=== PATIENT | male | born 1950 | race Caucasian/White ===

== ENCOUNTER 2016-12-19 08:33 | Emergency (ER) | payer OTHER ==
[~2016-12-19] VITALS: Ht 182.9 cm; Wt 61.2 kg
[2016-12-19] MEDS ORDERED: predniSONE 20 MG TABLET ONE (08:51)
[2016-12-19] MEDS ORDERED: IPRATROPIUM NEB FS 0.5 MG/2.5 ML AMPUL.NEB NEB ONE (09:00)
[2016-12-19] MEDS ORDERED: predniSONE 20 MG TABLET PO ONE (09:00)
[2016-12-19] MEDS ORDERED: ALBUTEROL FS 2.5 MG/3 ML VIAL.NEB NEB ONE (09:00)
[2016-12-19] MEDS ORDERED: methylPREDNISolone SOD SUCC 125 MG/2ML VIAL IV ONE (09:00)
[2016-12-19] MEDS ORDERED: methylPREDNISolone SOD SUCC 125 MG/2ML VIAL ONE (09:03)
[2016-12-19 09:09] LABS: BASOPHILS % (AUTO) 0.5 % (0.0-2.0); DIFF TOTAL % 100 %; EOSINOPHILS # (AUTO) 0.6 /CMM (0.0-0.7); EOSINOPHILS % (AUTO) 6.3 % (0.0-6.0); HEMATOCRIT 40 % (39-51); LYMPHOCYTES # (AUTO) 1.6 /CMM (0.8-4.8); LYMPHOCYTES % (AUTO) 16.5 % (20.0-44.0); MEAN CORPUSCULAR HEMOGLOBIN 31 PG (26.0-33.0); MEAN CORPUSCULAR HGB CONC 33 g/dl (31.0-36.0); MEAN CORPUSCULAR VOLUME 95 fL (80-96); MONOCYTES # (AUTO) 1.2 /CMM (0.1-1.30); MONOCYTES % (AUTO) 11.8 % (2.0-12.0); NEUTROPHILS # (AUTO) 6.4 /CMM (1.8-8.9); NEUTROPHILS % (AUTO) 64.9 % (43.0-81.0); PLATELET COUNT (AUTO) 346 /CMM (150-450); RED BLOOD CELL COUNT(AUTO) 4.19 MIL/uL (4.5-6.0); WHITE BLOOD COUNT (AUTO) 9.8 K/uL (4.3-11.0)
[2016-12-19] MEDS ORDERED: ALBUTEROL FS 2.5 MG/3 ML VIAL.NEB ONE (09:18)
[2016-12-19] MEDS ORDERED: IPRATROPIUM NEB FS 0.5 MG/2.5 ML AMPUL.NEB ONE (09:18)
[2016-12-19 09:23] LABS: ANION GAP 19 (5-14); CALCIUM, SERUM 8.7 mg/dL (8.5-10.1); CARBON DIOXIDE 23 mmol/L (21-32); CHLORIDE 98 mmol/L (98-107); CREATININE 1.1 mg/dL (0.6-1.3); GFR 67 mL/min (>60); GLUCOSE 97 mg/dL (74-106); POTASSIUM 4.7 mmol/L (3.5-5.1); SODIUM SERUM 135 mmol/L (136-145); UREA NITROGEN, BLOOD 17 mg/dL (7-18)
[2016-12-19 09:26] LABS: TROPONIN I < 0.017 ng/mL (0.00-0.056)
[2016-12-19] MEDS ORDERED: RALT400T PO (10:18)
[2016-12-19] MEDS ORDERED: FLUT1DIS3 IH (10:18)
[2016-12-19] MEDS ORDERED: ABAC1TAB3 PO (10:18)
[2016-12-19] MEDS ORDERED: HYDR10TA PO (10:18)
[2016-12-19] MEDS ORDERED: TRAZ-144 PO (10:18)
[2016-12-19] MEDS ORDERED: LORA1TAB PO (10:18)
[2016-12-19] MEDS ORDERED: OMEP40CA37 PO (10:18)
[2016-12-19] MEDS ORDERED: ALBU2.5V12 NEB (10:18)
[2016-12-19] MEDS ORDERED: ROSU10TA PO (10:18)
[2016-12-19] MEDS ORDERED: ALBU8.5H2 IH (10:18)
[2016-12-19 10:34] VITALS: BP 129/70
== END 2016-12-19 10:35 | disposition home or self-care (01) ==
LOC: ER 08:35
DX: J40 Bronchitis, not specified as acute or chronic (principal); J44.9 Chronic obstructive pulmonary disease, unspecified
CPT/HCPCS: 36415; 71010; 80048; 83880; 84484; 85025; 87804; 93005; 94640; 96374; 99285; A4606; J2930; 87400

== ENCOUNTER 2018-03-24 18:31 | Emergency (ER) | payer OTHER, MEDICAID ==
[~2018-03-24] VITALS: Ht 165.1 cm; Wt 52.8 kg
[~2018-03-24 18:31] MED LIST: ABAC1TAB3 PO; ALBU2.5V13 NEB; ALBU8.5H8 IH; FLUT1DIS3 IH; HYDR10TA PO; LORA1TAB PO; OMEP40CA37 PO; RALT400T PO; ROSU10TA PO; TRAZ-182 PO
--- NOTE | 2018-03-24 18:34 | NUR ---
AAOx3, BIBRA 87 from home c/o SOB, tachypneic, breathing treatment in the field. Placed on the monitor. Will continuously monitor the patient. Awaiting MD for eval.
--- NOTE | 2018-03-24 18:37 | NUR ---
Report given to AYLA Correa for RAIN.
--- NOTE | 2018-03-24 18:55 | NUR ---
BLOOD PICKED UP BY VIDEO GAME ANIMATOR
[2018-03-24] MEDS ORDERED: IV NS 0.9% 1,000 ML BAG IV ONE (19:00)
[2018-03-24] MEDS ORDERED: IPRATROPIUM NEB FS 0.5 MG/2.5 ML AMPUL.NEB NEB ONE (19:00)
[2018-03-24] MEDS ORDERED: ALBUTEROL FS 2.5 MG/3 ML VIAL.NEB NEB ONE (19:00)
[2018-03-24] MEDS ORDERED: methylPREDNISolone SOD SUCC 125 MG/2ML VIAL IV ONE (19:00)
--- NOTE | 2018-03-24 19:00 | NUR ---
INSET CUTTER AT BEDSIDE
[2018-03-24 19:05] LABS: BASOPHILS % (AUTO) 0.2 % (0.0-2.0); EOSINOPHILS % (AUTO) 1.2 % (0.0-6.0); HEMATOCRIT 36 % (39-51); HEMOGLOBIN 12.4 g/dL (13.5-17.5); LYMPHOCYTES # (AUTO) 1.4 /CMM (0.8-4.8); MEAN CORPUSCULAR HGB CONC 34 g/dl (31.0-36.0); MEAN CORPUSCULAR VOLUME 89 fL (80-96); MONOCYTES # (AUTO) 0.3 /CMM (0.1-1.30); MONOCYTES % (AUTO) 2.5 % (2.0-12.0); NEUTROPHILS # (AUTO) 8.7 /CMM (1.8-8.9); NEUTROPHILS % (AUTO) 83.1 % (43.0-81.0); PLATELET COUNT (AUTO) 351 /CMM (150-450); RDW COEFFICIENT OF VARIATION 16.9 (11.5-15.0); RED BLOOD CELL COUNT(AUTO) 4.09 MIL/uL (4.5-6.0); WHITE BLOOD COUNT (AUTO) 10.5 K/uL (4.3-11.0)
[2018-03-24] MEDS ORDERED: methylPREDNISolone SOD SUCC 125 MG/2ML VIAL ONE (19:07)
[2018-03-24 19:10] LABS: CARBON DIOXIDE 28 mmol/L (21-32); CHLORIDE 106 mmol/L (98-107); CREATININE 1.1 mg/dL (0.6-1.3); GLUCOSE 95 mg/dL (74-106); POTASSIUM 3.9 mmol/L (3.5-5.1); SODIUM SERUM 142 mmol/L (136-145); UREA NITROGEN, BLOOD 13 mg/dL (7-18)
[2018-03-24 19:16] LABS: ALANINE AMINOTRANSFERASE 6 U/L (12-78); ALBUMIN 3.4 g/dL (3.4-5.0); ALKALINE PHOSPHATASE 53 U/L (46-116); ASPARTATE AMINOTRANSFERASE 17 U/L (15-37); BILIRUBIN,DIRECT 0.1 mg/dL (0.0-0.2); BILIRUBIN,TOTAL 0.5 mg/dL (0.2-1.0); TOTAL PROTEIN, SERUM 7.5 g/dL (6.4-8.2)
[2018-03-24 19:18] LABS: TROPONIN I < 0.017 ng/mL (0.00-0.056)
[2018-03-24] MEDS ORDERED: ALBUTEROL FS 2.5 MG/3 ML VIAL.NEB ONE (19:24)
[2018-03-24 20:37] VITALS: BP 160/80
== END 2018-03-24 20:38 | disposition home or self-care (01) ==
LOC: ER 18:32
DX: J44.1 Chronic obstructive pulmonary disease with (acute) exacerbation (principal); F41.9 Anxiety disorder, unspecified; G89.29 Other chronic pain; I10 Essential (primary) hypertension; Z87.891 Personal history of nicotine dependence; Z53.20 Procedure and treatment not carried out because of patient's decision for unspecified reasons
CPT/HCPCS: 36415; 71045-TC; 80048-TC; 80076-TC; 84484-TC; 85025-TC; A4606; J2930; J7030; Z7610

== ENCOUNTER 2018-05-27 08:13 | Inpatient (IN) | payer MEDICARE, MEDICAID ==
[~2018-05-27] VITALS: Ht 165.1 cm; Wt 49.9 kg
--- NOTE | 2018-05-27 08:16 | NUR ---
PA FRO HOME DT SOB X 2 WEEKS, PATIENT IS AWAKE ALERT. APPEARS IN NO DISTRESS. PATIENT ON O2 VA NC @4LPM. SATING 94%,. SKIN IS WARM TO TOUCH AND NON DIAPHORETIC. PATIENT IS AFEBRILE. VSS
[2018-05-27] MEDS ORDERED: IPRATROPIUM NEB FS 0.5 MG/2.5 ML AMPUL.NEB NEB ONE ×2 (08:30→10:00)
[2018-05-27] MEDS ORDERED: ALBUTEROL FS 2.5 MG/3 ML VIAL.NEB NEB ONE ×2 (08:30→10:00)
[2018-05-27] MEDS ORDERED: methylPREDNISolone SOD SUCC 125 MG/2ML VIAL IV ONE (08:30)
[2018-05-27] MEDS ORDERED: LEVOFLOXACIN 750 MG /D5W 150ML 150 ML IV ONE ×2 (08:30→08:42)
[2018-05-27] MEDS ORDERED: methylPREDNISolone SOD SUCC 125 MG/2ML VIAL ONE (08:42)
[2018-05-27] MEDS ORDERED: ALBUTEROL FS 2.5 MG/3 ML VIAL.NEB ONE ×3 (08:44→09:48)
[2018-05-27] MEDS ORDERED: IPRATROPIUM NEB FS 0.5 MG/2.5 ML AMPUL.NEB ONE ×2 (08:44→09:43)
[2018-05-27 08:46] LABS: BASOPHILS # (AUTO) 0.1 /CMM (0.0-0.2); BASOPHILS % (AUTO) 0.4 % (0.0-2.0); EOSINOPHILS % (AUTO) 0.5 % (0.0-6.0); HEMATOCRIT 38 % (39-51); HEMOGLOBIN 12.7 g/dL (13.5-17.5); LYMPHOCYTES # (AUTO) 1.6 /CMM (0.8-4.8); LYMPHOCYTES % (AUTO) 11.8 % (20.0-44.0); MEAN CORPUSCULAR HEMOGLOBIN 30 PG (26.0-33.0); MEAN CORPUSCULAR HGB CONC 33 g/dl (31.0-36.0); MEAN CORPUSCULAR VOLUME 91 fL (80-96); MONOCYTES # (AUTO) 0.4 /CMM (0.1-1.30); NEUTROPHILS # (AUTO) 11.3 /CMM (1.8-8.9); NEUTROPHILS % (AUTO) 84.3 % (43.0-81.0); PLATELET COUNT (AUTO) 478 /CMM (150-450); RDW COEFFICIENT OF VARIATION 16.6 (11.5-15.0); RED BLOOD CELL COUNT(AUTO) 4.23 MIL/uL (4.5-6.0); WHITE BLOOD COUNT (AUTO) 13.4 K/uL (4.3-11.0)
[2018-05-27 09:05] LABS: CALCIUM, SERUM 8.7 mg/dL (8.5-10.1); CARBON DIOXIDE 23 mmol/L (21-32); CHLORIDE 96 mmol/L (98-107); CREATININE 1.8 mg/dL (0.6-1.3); GLUCOSE 109 mg/dL (74-106); POTASSIUM 3.3 mmol/L (3.5-5.1); SODIUM SERUM 133 mmol/L (136-145); UREA NITROGEN, BLOOD 32 mg/dL (7-18)
[2018-05-27 09:13] LABS: TROPONIN I < 0.017 ng/mL (0.00-0.056)
[2018-05-27 09:18] LABS: ALANINE AMINOTRANSFERASE 36 U/L (12-78); ALBUMIN 2.4 g/dL (3.4-5.0); ALKALINE PHOSPHATASE 66 U/L (46-116); ASPARTATE AMINOTRANSFERASE 54 U/L (15-37); B-TYPE NATRIURETIC PEPTIDE 653 PG/ML (0-125); BILIRUBIN,DIRECT 0.3 mg/dL (0.0-0.2); BILIRUBIN,TOTAL 0.7 mg/dL (0.2-1.0); TOTAL PROTEIN, SERUM 8.2 g/dL (6.4-8.2)
--- NOTE | 2018-05-27 09:27 | NUR ---
EPIC NOTIFIED. WILL CALL BACK
--- NOTE | 2018-05-27 09:40 | NUR ---
RT CONTACTED FOR ONE MORE AN ADDITIONAL BREATHING TX PER VERBAL ORDERS MD. PT REQUESTED TO SIGN OUT AMA. PT INFORMED OF RISKS AND BENEFITS.
--- NOTE | 2018-05-27 09:50 | NUR ---
PT GIVEN BREATHING TX; AFTER TX WAS GIVEN. PT REF TP CONTINUE WITH THE TX. RN NOTIFIED.
--- NOTE | 2018-05-27 10:38 | NUR ---
LAB AT BEDSIDE. PT REFUSED LACTIC ACID BLOOD DRAW PER ORDERED BY
--- NOTE | 2018-05-27 11:15 | NUR ---
PT TRANSP WITH STABLE CONDITION. NAD
[2018-05-27 11:30] VITALS: BP 96/63
--- NOTE | 2018-05-27 11:30 | NUR ---
VISION IMPAIRED TEACHERIRON ERECTOR NOTES ADMITTED PT FROM ER WITH DX OF COPD EXACERBATION AND PNA.CLARIFIED ADMITTING ORDERS WITH DR GALLARDO AND CARRIED OUT.RESPIRATIONS NON LABORED WITH O2 AT 2L/MIN VIA N/C.HOB KEPT ELEVATED.WITH MULTIPLE DRY SCABS ON BUE,BLE,RLE SAUNDERS AND LOWER BACK DRY WOUND SCAB.PT STATED THAT HE HAD FALLS IN THE PAST.ASSISTED PT TO THE TOILET.PLACED ON BED ALARM.PT LOOKS EMACIATED.PT ENJOYED [place] SNACKS AND LUNCH SERVED TO HIM.WITH GOOD APPETITE.PT STATED THAT HE HASN'T HAD BOWEL MOVEMENT IN A MONTH BECAUSE HE HAS'NT EATEN ANY FOOD FOR A MONTH.PT USES CANE AND FWW AT HOME WHERE HE LEFT HIS FWW IN THE AMBULANCE THAT TOOK HIM.PROVIDED A NEW FWW TO THE PT.CALL LIGHT PLACED WITHIN REACH.
[2018-05-27] MEDS ORDERED: Z GUARD REMEDY 2 OZ OINT TP PRN (12:30)
[2018-05-27] MEDS ORDERED: ONDANSETRON HCL/PF 4 MG/2 ML VIAL IVP PRN (12:30)
[2018-05-27] MEDS ORDERED: HYDROCODONE/APAP 5/325MG 1 EACH TABLET PO PRN (12:30)
[2018-05-27] MEDS ORDERED: POTASSIUM CHLORIDE 20 MEQ TAB.PRT.SR PO ONE (12:30)
[2018-05-27] MEDS ORDERED: MAGNESIUM HYDROXIDE 30 ML UDC PO PRN (12:30)
[2018-05-27] MEDS ORDERED: MAG HYDROX/AL HYDROX/SIMETH 30 ML UDC PO PRN (12:30)
[2018-05-27] MEDS ORDERED: ZOLPIDEM TARTRATE 5 MG TABLET PO PRN (12:30)
[2018-05-27] MEDS ORDERED: ACETAMINOPHEN 325 MG TABLET PO PRN (12:30)
[2018-05-27] MEDS: IV NS 0.9% 1,000 ML BAG IV SCH (12:56)
--- NOTE | 2018-05-27 13:00 | NUR ---
CLARIFIED EPZICOM 300MG TAB (HOME MED) TO THE PT AND PT STATED THAT HE HASN'T BEEN TAKING THEM FOR A LONG TIME BECAUSE HE DOESN'T HAVE ANY PRIMARY DOCTOR TO PRESCRIBE THEM.ALSO HE STATED THAT HE TAKES THEM WITH ISENTRESS ALL THE TIME.
[2018-05-27] MEDS: ALBUTEROL FS 2.5 MG/3 ML VIAL.NEB NEB SCH ×3 (14:48→22:49)
[2018-05-27] MEDS: IPRATROPIUM NEB FS 0.5 MG/2.5 ML AMPUL.NEB NEB SCH ×3 (14:48→22:49)
--- NOTE | 2018-05-27 15:06 | NUR ---
EXPLAINED THE IMPORTANCE OF TAKING HIS HIV MEDS E.G ISINTRESS AND EPZICOM BUT PT INSISTS AND STATED THAT YOU CAN'T TAKE ONE WITHOUT THE OTHER CAUSE THEY SUPPORT EACH OTHER.EXPLAINED THE RISKS AND BENEFITS BUT PT INSISTS TO REFUSE.NOTIFIED DR GALLARDO AND PHARMACIST MADE AWARE.
[2018-05-27] MEDS ORDERED: RALTEGRAVIR POTASSIUM 400 MG TABLET PO SCH (17:00)
[2018-05-27] MEDS ORDERED: EPZICOM PO SCH (17:00)
[2018-05-27] MEDS ORDERED: TRAZODONE 50 MG TABLET PO SCH (18:00)
--- NOTE | 2018-05-27 18:00 | NUR ---
PT RESTING IN BED WITH NO SOB AND 98% O2 SAT ON ROOM AIR.DENIES ANY DISTRESS.CALL LIGHT PLACED WITHIN REACH.
--- NOTE | 2018-05-27 19:20 | NUR ---
INFORMATION TECHNOLOGY ARCHITECT OPENING NOTE Patient was seen sitting up in bed in high-Herrera's, AAOx4, breathing on RA with no apparent SOB, and no signs of acute distress. Telemonitor shows normal sinus rhythm at 90 bpm. NS at 100ml/hr is running through the right FA IV with no signs of leaking or infiltration. Bed is low/locked, two side rails up, and call nunn within reach. Patient has no immediate needs at this time. Will continue to monitor.
[2018-05-27 20:00] VITALS: BP 110/72
[2018-05-27] MEDS ORDERED: LORAZEPAM 1 MG TABLET PO SCH (22:00)
--- NOTE | 2018-05-27 22:00 | NUR ---
DISH TECHNICIAN NOTE - request for no overnight RT Patient requested that he skip his breathing treatments by RT overnight at 2300 and 0300 hours. He states that he would rather have a good night's sleep. Since patient's O2 sat is stable on RA at 99%, lungs are clear, and patient is not having dyspnea, I agreed and called Respiratory to cancel overnight treatments. I educated the patient on signs/symptoms of difficulty breathing and low oxygen saturation, and told the patient to inform me of any onset of symptoms so that I can call RT if needed. Breathing treatments will resume tomorrow morning (05/28) unless otherwise indicated.
[2018-05-28] VITALS: BP 106/67
[2018-05-28] MEDS: IV NS 0.9% 1,000 ML BAG IV SCH (02:00)
[2018-05-28] MEDS: IPRATROPIUM NEB FS 0.5 MG/2.5 ML AMPUL.NEB NEB SCH (02:34)
[2018-05-28] MEDS: ALBUTEROL FS 2.5 MG/3 ML VIAL.NEB NEB SCH (02:34)
[2018-05-28 04:00] VITALS: BP 101/67
--- NOTE | 2018-05-28 06:54 | NUR ---
AIR BAG BUILDER NOTE - Pt left AMA Patient with HIV/AIDS had excessive skin dryness on his face, and claimed that he had a prescription cream at home to help treat it; patient claimed this was specific to his AIDS condition, but he could not remember the name of the medication. I checked Med Recon list, but no topical creams or ointments were listed. Patient did not want to wait for the physician, despite being told that the physician would be in the unit within an hour and half. Patient was also offered [id number] skin lotion to help alleviate his discomfort, but patient refused. I was advised by the Charge Nurse, Eveline, not to notify the on-call doctor, since it was unlikely that the physician would be familiar with an HIV/AIDS medication cream. Patient was advised to stay in the hospital due to his condition and need for antibiotics, IV fluid hydration, and supplemental oxygen. Patient stated that he "was ready to at home anyway" and insisted on signing AMA forms. I was present in the room when the patient used his cell phone to call a taxi service. Patient signed AMA forms accordingly, and form was placed in patient's chart. Incident report was filed on the intranet.
[2018-05-28] MEDS ORDERED: PANTOPRAZOLE 40 MG TABLET.DR PO SCH (07:30)
[2018-05-28] MEDS ORDERED: ATORVASTATIN 10 MG TABLET PO SCH (09:00)
[2018-05-28] MEDS ORDERED: LORAZEPAM 1 MG TABLET PO SCH (09:00)
[2018-05-28] MEDS ORDERED: methylPREDNISolone SOD SUCC 125 MG/2ML VIAL IV SCH (09:00)
[2018-05-28] MEDS ORDERED: AZITHROMYCIN 250 MG TABLET PO ONE (13:00)
[2018-05-29] MEDS ORDERED: AZITHROMYCIN 250 MG TABLET PO SCH (13:00)
== END 2018-05-28 06:00 | disposition left against medical advice (07) | DRG 190 ==
LOC: ER 08:14 → TELE 11:12
PROVIDERS: ADMIT Family Medicine; ATTEND Family Medicine
DX: J44.1 Chronic obstructive pulmonary disease with (acute) exacerbation (principal); N17.0 Acute kidney failure with tubular necrosis; E87.1 Hypo-osmolality and hyponatremia; E44.0 Moderate protein-calorie malnutrition; E87.2 Acidosis; I10 Essential (primary) hypertension; G89.29 Other chronic pain; Z79.899 Other long term (current) drug therapy; E78.5 Hyperlipidemia, unspecified; I48.91 Unspecified atrial fibrillation; K21.9 Gastro-esophageal reflux disease without esophagitis; L21.9 Seborrheic dermatitis, unspecified; Z82.49 Family history of ischemic heart disease and other diseases of the circulatory system; Z87.891 Personal history of nicotine dependence; E86.1 Hypovolemia; E87.6 Hypokalemia; D72.829 Elevated white blood cell count, unspecified
CPT/HCPCS: 36415; 71045-TC; 80048-TC; 80076-TC; 83605-TC; 83880; 84484-TC; 85025-TC; 87040-TC; 87081-TC; 93307-TC; A4606; J1956; J2930; J7030; Z7610

== ENCOUNTER 2018-06-02 09:32 | Emergency (ER) | payer MEDICARE, MEDICAID ==
[~2018-06-02] VITALS: Ht 165.1 cm; Wt 50.8 kg
--- NOTE | 2018-06-02 09:45 | NUR ---
PT PA FROM HOME FOR WORSENING SOB X 4 DAYS. SEEN BY MD FOR ADEEL. ABLE TO TALK IN FULL SENTENCE. SAFETY AND COMFORT MEASURES PROVIDED. WILL MONITOR.
[2018-06-02] MEDS ORDERED: LEVOFLOXACIN 750 MG /D5W 150ML 150 ML IV ONE ×2 (09:52→10:00)
[2018-06-02] MEDS ORDERED: methylPREDNISolone SOD SUCC 125 MG/2ML VIAL ONE (09:52)
--- NOTE | 2018-06-02 09:55 | NUR ---
IV ACCESS STARTED. BLOOD DRAWN FOR LABS. MEDICATED ORDERED.
[2018-06-02] MEDS ORDERED: ALBUTEROL FS 2.5 MG/3 ML VIAL.NEB ONE (09:56)
[2018-06-02] MEDS ORDERED: IPRATROPIUM NEB FS 0.5 MG/2.5 ML AMPUL.NEB ONE (09:56)
[2018-06-02] MEDS: CEFTRIAXONE 1GM BAG (ER ONLY) 50 ML IV ONE ×2 (10:00→10:20)
[2018-06-02] MEDS ORDERED: ALBUTEROL FS 2.5 MG/3 ML VIAL.NEB CONTNEB ONE (10:00)
[2018-06-02] MEDS ORDERED: IV NS 0.9% 1,000 ML BAG IV ONE (10:00)
[2018-06-02] MEDS ORDERED: IPRATROPIUM NEB FS 0.5 MG/2.5 ML AMPUL.NEB NEB ONE (10:00)
[2018-06-02] MEDS ORDERED: methylPREDNISolone SOD SUCC 125 MG/2ML VIAL IV ONE (10:00)
[2018-06-02 10:02] LABS: BASOPHILS % (AUTO) 0.2 % (0.0-2.0); EOSINOPHILS % (AUTO) 2.9 % (0.0-6.0); HEMATOCRIT 35 % (39-51); HEMOGLOBIN 11.6 g/dL (13.5-17.5); LYMPHOCYTES # (AUTO) 1.4 /CMM (0.8-4.8); LYMPHOCYTES % (AUTO) 18.2 % (20.0-44.0); MEAN CORPUSCULAR HEMOGLOBIN 30 PG (26.0-33.0); MEAN CORPUSCULAR HGB CONC 34 g/dl (31.0-36.0); MEAN CORPUSCULAR VOLUME 88 fL (80-96); MONOCYTES # (AUTO) 0.5 /CMM (0.1-1.30); MONOCYTES % (AUTO) 6.2 % (2.0-12.0); NEUTROPHILS # (AUTO) 5.8 /CMM (1.8-8.9); NEUTROPHILS % (AUTO) 72.5 % (43.0-81.0); PLATELET COUNT (AUTO) 717 /CMM (150-450); RDW COEFFICIENT OF VARIATION 14.7 (11.5-15.0); RED BLOOD CELL COUNT(AUTO) 3.94 MIL/uL (4.5-6.0); WHITE BLOOD COUNT (AUTO) 7.9 K/uL (4.3-11.0)
--- NOTE | 2018-06-02 10:05 | NUR ---
VBG DRAWN. RT AT BS FOR BREATHING TX.
[2018-06-02 10:13] LABS: ABG OXYGEN SATURATION 50.1 % (92.0-98.5); ABG PCO2 38.3 mmHg (35.0-45.0); ABG PH 7.421 (7.350-7.450); ABG PO2 28.2 mmHg (75.0-100.0); COHb 0.7 % (0.5-1.5); MetHb 0.5 % (0.0-1.5); O2Hb 49.5 % (94.0-97.0); VENT MODE, BG RA
[2018-06-02 10:16] LABS: CALCIUM, SERUM 8.3 mg/dL (8.5-10.1); CARBON DIOXIDE 25 mmol/L (21-32); CHLORIDE 104 mmol/L (98-107); CREATININE 0.9 mg/dL (0.6-1.3); GLUCOSE 78 mg/dL (74-106); SODIUM SERUM 139 mmol/L (136-145); UREA NITROGEN, BLOOD 10 mg/dL (7-18)
[2018-06-02 10:20] LABS: TROPONIN I < 0.017 ng/mL (0.00-0.056)
[2018-06-02 10:22] LABS: ALANINE AMINOTRANSFERASE 23 U/L (12-78); ALBUMIN 2.1 g/dL (3.4-5.0); ALKALINE PHOSPHATASE 66 U/L (46-116); ASPARTATE AMINOTRANSFERASE 23 U/L (15-37); BILIRUBIN,DIRECT 0.1 mg/dL (0.0-0.2); BILIRUBIN,TOTAL 0.3 mg/dL (0.2-1.0); TOTAL PROTEIN, SERUM 7.1 g/dL (6.4-8.2)
[2018-06-02] MEDS: SULFAMETH/TRIMETH 800/160 MG 1 UDTAB TABLET PO ONE ×2 (10:35→11:20)
[2018-06-02] MEDS ORDERED: SULFAMETH/TRIMETH 800/160 MG 1 UDTAB TABLET PO ONE (10:36)
--- NOTE | 2018-06-02 11:21 | NUR ---
PAGED DR. ERNST FOR DR. BRUNER
--- NOTE | 2018-06-02 11:24 | NUR ---
PAGED EPIC FOR PANEL.
[2018-06-02] MEDS ORDERED: SULFAMETHOXAZOLE/TRIMETHOPRIM 15 ML in IV D5W 250 ML IV ONE (11:30)
--- NOTE | 2018-06-02 11:37 | NUR ---
Patient does not wish to proceed with medical care recommended by . Patient given information related to possible complications, up to and including , which could occur as a result of leaving the hospital at this time. Patient verbalizes understanding of risks involved due to leaving against medical advice. Patient has signed AMA form.
[2018-06-02 11:43] VITALS: BP 123/73
== END 2018-06-02 11:44 | disposition left against medical advice (07) ==
LOC: ER 09:33
DX: I48.91 Unspecified atrial fibrillation (principal); J44.9 Chronic obstructive pulmonary disease, unspecified; J18.9 Pneumonia, unspecified organism; G89.29 Other chronic pain; M54.9 Dorsalgia, unspecified; R53.1 Weakness; I10 Essential (primary) hypertension; Z87.891 Personal history of nicotine dependence
CPT/HCPCS: 36415; 36600; 71045; 80048; 80076; 83605; 84484; 85025; 85730; 87040 ×2; 93005; 94644; 96365; 96367; 96375; 99285; A4606; J0696; J1956; J2930; J7030; J3490; J7060; Z7610

== ENCOUNTER 2018-06-10 12:52 | Inpatient (IN) | payer MEDICARE, MEDICAID ==
[~2018-06-10] VITALS: Ht 182.9 cm; Wt 53.5 kg
[2018-06-10] MEDS ORDERED: IV NS 0.9% 1,000 ML IV ONE (13:02)
[2018-06-10] MEDS ORDERED: IPRATROPIUM NEB FS 0.5 MG/2.5 ML AMPUL.NEB ONE (13:06)
[2018-06-10] MEDS ORDERED: ALBUTEROL FS 2.5 MG/3 ML VIAL.NEB ONE (13:06)
[2018-06-10 13:14] LABS: BASOPHILS # (AUTO) 0.2 /CMM (0.0-0.2); BASOPHILS % (AUTO) 2.9 % (0.0-2.0); EOSINOPHILS % (AUTO) 1.5 % (0.0-6.0); HEMATOCRIT 30 % (39-51); HEMOGLOBIN 9.6 g/dL (13.5-17.5); LYMPHOCYTES # (AUTO) 1.3 /CMM (0.8-4.8); LYMPHOCYTES % (AUTO) 22.5 % (20.0-44.0); MEAN CORPUSCULAR HEMOGLOBIN 29 PG (26.0-33.0); MEAN CORPUSCULAR HGB CONC 33 g/dl (31.0-36.0); MEAN CORPUSCULAR VOLUME 88 fL (80-96); MONOCYTES # (AUTO) 0.3 /CMM (0.1-1.30); MONOCYTES % (AUTO) 6.1 % (2.0-12.0); NEUTROPHILS # (AUTO) 3.8 /CMM (1.8-8.9); PLATELET COUNT (AUTO) 331 /CMM (150-450); RDW COEFFICIENT OF VARIATION 15.1 (11.5-15.0); RED BLOOD CELL COUNT(AUTO) 3.34 MIL/uL (4.5-6.0); WHITE BLOOD COUNT (AUTO) 5.7 K/uL (4.3-11.0)
--- NOTE | 2018-06-10 13:15 | NUR ---
PT REC'D TO ER VIA EMS PT CO SOB , HASNT EaTTEN IN 2 DAYS WEAKNESS. IV STARTED 20G RT AC LABS SENT TO LAB . N/C 2L 97 % . RA 94% . RT AT BEDSIDE . BREATHING TX AND IV NS BOLUS SOLYM GIVEN IV PER MD AWAITING EVALUATION BY ER PROVIDER.
[2018-06-10] MEDS ORDERED: methylPREDNISolone SOD SUCC 125 MG/2ML VIAL ONE (13:16)
[2018-06-10 13:25] LABS: CALCIUM, SERUM 8.7 mg/dL (8.5-10.1); CARBON DIOXIDE 24 mmol/L (21-32); CHLORIDE 103 mmol/L (98-107); CREATININE 0.9 mg/dL (0.6-1.3); GLUCOSE 76 mg/dL (74-106); POTASSIUM 4.2 mmol/L (3.5-5.1); SODIUM SERUM 136 mmol/L (136-145); UREA NITROGEN, BLOOD 13 mg/dL (7-18)
[2018-06-10] MEDS ORDERED: IPRATROPIUM NEB FS 0.5 MG/2.5 ML AMPUL.NEB NEB ONE (13:30)
[2018-06-10] MEDS ORDERED: methylPREDNISolone SOD SUCC 125 MG/2ML VIAL IV ONE (13:30)
[2018-06-10] MEDS ORDERED: ALBUTEROL FS 2.5 MG/3 ML VIAL.NEB NEB ONE (13:30)
--- NOTE | 2018-06-10 13:30 | NUR ---
CHEST XRAY DONE
[2018-06-10 13:31] LABS: TROPONIN I < 0.017 ng/mL (0.00-0.056)
[2018-06-10 13:37] LABS: ALANINE AMINOTRANSFERASE 15 U/L (12-78); ALBUMIN 2.5 g/dL (3.4-5.0); ALKALINE PHOSPHATASE 76 U/L (46-116); ASPARTATE AMINOTRANSFERASE 20 U/L (15-37); B-TYPE NATRIURETIC PEPTIDE 45 PG/ML (0-125); BILIRUBIN,DIRECT 0.1 mg/dL (0.0-0.2); BILIRUBIN,TOTAL 0.4 mg/dL (0.2-1.0); TOTAL PROTEIN, SERUM 7.2 g/dL (6.4-8.2)
--- NOTE | 2018-06-10 13:38 | NUR ---
CALLED [facility] FOR PANEL - DR SALMON
--- NOTE | 2018-06-10 13:51 | NUR ---
CALLED NURSE SUP FOR TELE BED
[2018-06-10 15:18] VITALS: BP 110/65
--- NOTE | 2018-06-10 15:19 | NUR ---
PT SLEEPING SOUNDLY RESP EVEN UNLABORED NOC/O SOB
--- NOTE | 2018-06-10 16:10 | NUR ---
PT BROUGHT IN BY E.R. STAFF VIA [facility], AWAKE, ALERT AND VERBALLY RESPONSIVE, STATED THAT HE IS NOT GOING TO BE IN A PRIVATE ROOM SO HE WILL BE SIGNING OUT OF THE HOSPITAL, EXPLAINED TO PT THAT HE WILL BE TRANSFERED TO A PRIVATE ROOM ONCE THERE IS ONE AVAILABLE BUT STILL INSISTED TO LEAVE AGAINST MEDICAL ADVICE. IV LINE REMOVED, PT DID NOT GET UP FROM THE [facility], RISKS AND BENEFITS DISCUSSED WITH PT, STILL WANTS TO LEAVE AMA, ASSISTED BY E.R. STAFF VIA [facility] TO THE HOSPITAL LOBBY, SAID THAT SOMEBODY WILL PICK HIM UP THERE.
--- NOTE | 2018-06-10 16:29 | NUR ---
PT TRANSFER TO FLOOR
== END 2018-06-10 16:10 | disposition left against medical advice (07) | DRG 192 ==
LOC: ER 12:54 → TELE 15:40
PROVIDERS: ADMIT Internal Medicine; ATTEND Internal Medicine
DX: J44.1 Chronic obstructive pulmonary disease with (acute) exacerbation (principal); I10 Essential (primary) hypertension; Z87.891 Personal history of nicotine dependence; G89.29 Other chronic pain
CPT/HCPCS: 36415; 71045-TC; 80048-TC; 80076-TC; 83880; 84484-TC; 85025-TC; 87081-TC; A4606; J2930; J7030; Z7610

== ENCOUNTER → 2018-08-15 | Emergency (ER) | payer MEDICARE, MEDICAID ==
[~2018-08-15] VITALS: Ht 180.3 cm; Wt 49.4 kg
[~2018-08-15] MED LIST changes: -ABAC1TAB3 PO; -ALBU2.5V13 NEB; -ALBU8.5H8 IH; -FLUT1DIS3 IH; -HYDR10TA PO; -LORA1TAB PO; -OMEP40CA37 PO; +ONDANSETRON HCL/PF 4 MG/2 ML VIAL ONE; -RALT400T PO; -ROSU10TA PO; -TRAZ-182 PO
[2018-08-15] MEDS: IV NS 0.9% 1,000 ML BAG IV ONE (10:11)
[2018-08-15] MEDS: ONDANSETRON HCL/PF 4 MG/2 ML VIAL IVP ONE (10:12)
--- NOTE | 2018-08-15 10:14 | NUR ---
BIB SELF C/O NO APPETITE X 1WK, WEAKNESS, ANNALISA LEG PAIN, NON RADIATING & NAUSEA. PT AAOX3, VSS. DENIES CP, SOB, DIZZINESS, DIARRHEA @ THIS TIME. PT SEEN & EVAL'D BY DR. HOPE. MEDICATED PER ERMD ORDER & WILL CONT TO MONITOR.
[2018-08-15 10:18] LABS: BASOPHILS # (AUTO) 0.1 /CMM (0.0-0.2); BASOPHILS % (AUTO) 0.9 % (0.0-2.0); EOSINOPHILS % (AUTO) 2.3 % (0.0-6.0); HEMATOCRIT 36 % (39-51); HEMOGLOBIN 12.1 g/dL (13.5-17.5); LYMPHOCYTES # (AUTO) 1.4 /CMM (0.8-4.8); LYMPHOCYTES % (AUTO) 24.1 % (20.0-44.0); MEAN CORPUSCULAR HGB CONC 33 g/dl (31.0-36.0); MEAN CORPUSCULAR VOLUME 89 fL (80-96); MONOCYTES # (AUTO) 0.4 /CMM (0.1-1.30); MONOCYTES % (AUTO) 7.2 % (2.0-12.0); NEUTROPHILS # (AUTO) 3.9 /CMM (1.8-8.9); NEUTROPHILS % (AUTO) 65.5 % (43.0-81.0); PLATELET COUNT (AUTO) 409 /CMM (150-450); RDW COEFFICIENT OF VARIATION 15.9 (11.5-15.0); WHITE BLOOD COUNT (AUTO) 5.9 K/uL (4.3-11.0)
[2018-08-15 10:28] LABS: CALCIUM, SERUM 9.2 mg/dL (8.5-10.1); CREATININE 0.9 mg/dL (0.6-1.3); POTASSIUM 4.2 mmol/L (3.5-5.1)
[2018-08-15 10:44] LABS: ALBUMIN 3.4 g/dL (3.4-5.0); BILIRUBIN,DIRECT 0.1 mg/dL (0.0-0.2); BILIRUBIN,TOTAL 0.6 mg/dL (0.2-1.0); TOTAL PROTEIN, SERUM 7.7 g/dL (6.4-8.2)
--- NOTE | 2018-08-15 11:05 | NUR ---
Patient discharged to home in stable condition. Written and verbal after care instructions given. Patient verbalizes understanding of instruction.
[2018-08-15 11:07] VITALS: BP 123/81
== END | disposition home or self-care (01) ==
LOC: ER 09:27
DX: R53.1 Weakness (principal); R63.0 Anorexia; I10 Essential (primary) hypertension; J44.9 Chronic obstructive pulmonary disease, unspecified; G89.29 Other chronic pain; Z87.891 Personal history of nicotine dependence
CPT/HCPCS: 36415; 71045; 80048; 80076; 83690; 85025; 93005; 96361; 96374; 99285; A4606; J2405; J7030; Z7610